=== PATIENT | male | born 1965 | race Caucasian/White ===

== ENCOUNTER → 2016-04-16 | Outpatient (CLI) | payer BC ==
--- NOTE | 2016-04-16 15:20 | CT ---
EXAMINATION TYPE: CT abdomen pelvis wo con DATE OF EXAM: 04/16/2016 3:09 PM COMPARISON: NONE HISTORY: Pt states of abdominal and pelvic pain with constipation. CT DLP: 1089 mGycm Automated exposure control for dose reduction was used. TECHNIQUE: Helical acquisition of images was performed from the lung bases through the pelvis. FINDINGS: LUNG BASES: No significant abnormality is appreciated. LIVER/GB: No significant abnormality is appreciated. PANCREAS: No significant abnormality is seen. SPLEEN: No significant abnormality is seen. ADRENALS: No significant abnormality is seen. KIDNEYS: Bilateral parapelvic renal cysts. No renal calcifications. RETROPERITONEAL ADENOPATHY: None visualized URINARY BLADDER: No significant abnormality is seen. PELVIC ADENOPATHY: None visualized. OSSEOUS STRUCTURES: Hypertrophic change of the spine noted.. BOWEL: There is marked wall thickening involving the sigmoid colon with pericolonic inflammatory latonya nge in diverticula. No free air. No abscess. OTHER: Aorta of normal caliber. Central disc protrusion L4-L5. IMPRESSION: ACUTE UNCOMPLICATED SIGMOID DIVERTICULITIS. FOLLOW TO RESOLUTION TO EXCLUDE MUCOSAL LESION.
== END | disposition home or self-care (01) ==
LOC: RADCTMAIN 10:37
PROVIDERS: ATTEND Family Medicine
DX: K57.32 Diverticulitis of large intestine without perforation or abscess without bleeding (principal)
CPT/HCPCS: 74176

== ENCOUNTER 2017-09-23 09:26 | Emergency (ER) | payer BC ==
[2017-09-23] MEDS ORDERED: SODIUM CHLORIDE 0.9% 1,000 ML IV STA (09:36)
--- NOTE | 2017-09-23 09:38 | ED ---
Abdominal Pain HPI - General Source: patient, RN notes reviewed Mode of arrival: ambulatory Limitations: no limitations <Fortunato Felton - Last Filed: 09/23/17 11:26> <Suhail Mo - Last Filed: 09/27/17 14:30> - General Chief Complaint: Abdominal Pain Stated Complaint: ABDOMINAL PAIN Time Seen by Provider: 09/23/17 09:33 - History of Present Illness Initial Comments: This a 52-year-old male presents emergency Department chief complaint of lower abdominal pain. Patient states pain started yesterday has progressed into today. Patient states he did have bowel movement yesterday states he feels he has to go but is having little output. He does admit to urinary frequency no dysuria no hematuria. Denies any flank pain or any back pain this time. Patient has a history of diverticulitis no abdominal surgeries. Patient was unable to see PCP today and came the emergency department. Patient states that he felt that he had a fever last night. (Fortunato Felton) - Related Data Home Medications Medication Instructions Recorded Confirmed Amoxicillin 1,000 mg PO ONCE 09/23/17 09/23/17 Aspirin EC [Ecotrin Low Dose] 81 mg PO HS 09/23/17 09/23/17 Naproxen Sodium [Aleve] 220 mg PO HS 09/23/17 09/23/17 Previous Rx's Medication Instructions Recorded Ciprofloxacin HCl [Cipro] 500 mg PO Q12HR #20 tablet 09/23/17 metroNIDAZOLE [Flagyl] 500 mg PO TID #30 tab 09/23/17 Allergies Allergy/AdvReac Type Severity Reaction Status Date / Time No Known Allergies Allergy Verified 09/23/17 09:50 Review of Systems ROS Other: All systems not noted in ROS Statement are negative. <Fortunato Felton - Last Filed: 09/23/17 11:26> ROS Other: All systems not noted in ROS Statement are negative. <Suhail Mo - Last Filed: 09/27/17 14:30> ROS Statement: Those systems with pertinent positive or pertinent negative responses have been documented in the HPI. Past Medical History Additional Past Medical History / Comment(s): diverticulitis History of Any Multi-Drug Resistant Organisms: None Reported Past Surgical History: No Surgical Hx Reported Past Psychological History: No Psychological Hx Reported Smoking Status: Never smoker Past Alcohol Use History: None Reported Past Drug Use History: None Reported <Fortunato Felton - Last Filed: 09/23/17 11:26> General Exam Limitations: no limitations General appearance: alert, in no apparent distress Head exam: Present: atraumatic, normocephalic, normal inspection Neck exam: Present: normal inspection. Absent: tenderness, meningismus, lymphadenopathy Respiratory exam: Present: normal lung sounds bilaterally. Absent: respiratory distress, wheezes, rales, rhonchi, stridor Cardiovascular Exam: Present: regular rate, normal rhythm, normal heart sounds. Absent: systolic murmur, diastolic murmur, rubs, gallop, clicks GI/Abdominal exam: Present: soft, tenderness (Mild lower), normal bowel sounds. Absent: distended, guarding, rebound, rigid Back exam: Absent: CVA tenderness (R), CVA tenderness (L) Skin exam: Present: warm, dry, intact, normal color. Absent: rash <Fortuntao Felton - Last Filed: 09/23/17 11:26> Vital Signs 09/23/17 09/23/17 09:29 11:34 Temperature 97.4 F L 97.8 F Pulse Rate 90 68 Respiratory 18 16 Rate Blood Pressure 139/96 138/70 O2 Sat by Pulse 96 98 Oximetry Medical Decision Making - Lab Data Result diagrams: 09/23/17 09:54 09/23/17 09:54 <Fortunato Felton - Last Filed: 09/23/17 11:26> - Lab Data Result diagrams: 09/23/17 09:54 09/23/17 09:54 <Suhail Mo - Last Filed: 09/27/17 14:30> - Medical Decision Making 52-year-old male present emergency department for left lower quadrant abdominal pain. Patient had laboratory, CT CT does show evidence of on computed diverticulitis there is no abscesses no perforation. Patient had no nausea or vomiting. Patient can tolerate by mouth intake at this time. Patient will be started on Cipro Flagyl with close follow-up and recommended colonoscopy after resolution of symptoms. (Fortunato Felton) Resident/PA attestation: I, Dr. Suhail Mo, personally saw and examined the patient. I have reviewed and agree with the resident/PA findings, including all diagnostic interpretations and treatment plans as written unless otherwise stated. I was present for the clemons portions of any procedures performed and inclusive time noted for any critical care statement. 52-year-old male presents with clinical presentation consistent with diverticulitis. He is well-appearing and showing no signs of intractable pain or intractable nausea and vomiting. CT imaging showed cocaine infection. Patient agreeable to discharge her with antibiotics. Advised follow-up with primary care physician discharge. (Suhail Mo) - Lab Data Lab Results 09/23/17 09/23/17 09/23/17 Range/Units 09:43 09:54 09:54 WBC 10.0 (3.8-10.6) k/uL RBC 5.81 (4.30-5.90) m/uL Hgb 16.9 (13.0-17.5) gm/dL Hct 51.5 (39.0-53.0) % MCV 88.7 (80.0-100.0) fL MCH 29.1 (25.0-35.0) pg MCHC 32.8 (31.0-37.0) g/dL RDW 12.5 (11.5-15.5) % Plt Count 261 (150-450) k/uL Neutrophils % 75 % Lymphocytes % 15 % Monocytes % 6 % Eosinophils % 2 % Basophils % 0 % Neutrophils # 7.5 (1.3-7.7) k/uL Lymphocytes # 1.5 (1.0-4.8) k/uL Monocytes # 0.6 (0-1.0) k/uL Eosinophils # 0.2 (0-0.7) k/uL Basophils # 0.0 (0-0.2) k/uL Sodium 139 (137-145) mmol/L Potassium 4.3 (3.5-5.1) mmol/L Chloride 103 (98-107) mmol/L Carbon Dioxide 24 (22-30) mmol/L Anion Gap 12 mmol/L BUN 14 (9-20) mg/dL Creatinine 1.00 (0.66-1.25) mg/dL Est GFR (CKD-EPI)AfAm >90 (>60 ml/min/1.73 sqM) Est GFR (CKD-EPI)NonAf 85 (>60 ml/min/1.73 sqM) Glucose 108 H (74-99) mg/dL Plasma Lactic Acid Bran (0.7-2.0) mmol/L Calcium 9.4 (8.4-10.2) mg/dL Total Bilirubin 0.8 (0.2-1.3) mg/dL AST 21 (17-59) U/L ALT 33 (21-72) U/L Alkaline Phosphatase 79 (38-126) U/L Total Protein 6.9 (6.3-8.2) g/dL Albumin 4.2 (3.5-5.0) g/dL Amylase 68 (30-110) U/L Lipase 112 (23-300) U/L Urine Color Yellow Urine Appearance Clear (Clear) Urine pH 6.0 (5.0-8.0) Ur Specific [place] 1.014 (1.001-1.035) Urine Protein Negative (Negative) Urine Glucose (UA) Negative (Negative) Urine Ketones Negative (Negative) Urine Blood Negative (Negative) Urine Nitrite Negative (Negative) Urine Bilirubin Negative (Negative) Urine Urobilinogen <2.0 (<2.0) mg/dL Ur Leukocyte Esterase Trace H (Negative) Urine WBC <1 (0-5) /hpf Ur Squamous Epith Cells <1 (0-4) /hpf Urine Mucus Rare H (None) /hpf 09/23/17 Range/Units 09:54 WBC (3.8-10.6) k/uL RBC (4.30-5.90) m/uL Hgb (13.0-17.5) gm/dL Hct (39.0-53.0) % MCV (80.0-100.0) fL MCH (25.0-35.0) pg MCHC (31.0-37.0) g/dL RDW (11.5-15.5) % Plt Count (150-450) k/uL Neutrophils % % Lymphocytes % % Monocytes % % Eosinophils % % Basophils % % Neutrophils # (1.3-7.7) k/uL Lymphocytes # (1.0-4.8) k/uL Monocytes # (0-1.0) k/uL Eosinophils # (0-0.7) k/uL Basophils # (0-0.2) k/uL Sodium (137-145) mmol/L Potassium (3.5-5.1) mmol/L Chloride (98-107) mmol/L Carbon Dioxide (22-30) mmol/L Anion Gap mmol/L BUN (9-20) mg/dL Creatinine (0.66-1.25) mg/dL Est GFR (CKD-EPI)AfAm (>60 ml/min/1.73 sqM) Est GFR (CKD-EPI)NonAf (>60 ml/min/1.73 sqM) Glucose (74-99) mg/dL Plasma Lactic Acid Bran 1.1 (0.7-2.0) mmol/L Calcium (8.4-10.2) mg/dL Total Bilirubin (0.2-1.3) mg/dL AST (17-59) U/L ALT (21-72) U/L Alkaline Phosphatase (38-126) U/L Total Protein (6.3-8.2) g/dL Albumin (3.5-5.0) g/dL Amylase (30-110) U/L Lipase (23-300) U/L Urine Color Urine Appearance (Clear) Urine pH (5.0-8.0) Ur Specific [place] (1.001-1.035) Urine Protein (Negative) Urine Glucose (UA) (Negative) Urine Ketones (Negative) Urine Blood (Negative) Urine Nitrite (Negative) Urine Bilirubin (Negative) Urine Urobilinogen (<2.0) mg/dL Ur Leukocyte Esterase (Negative) Urine WBC (0-5) /hpf Ur Squamous Epith Cells (0-4) /hpf Urine Mucus (None) /hpf Disposition Is patient prescribed a controlled substance at d/c from ED?: No Time of Disposition: 11:27 <Fortunato Felton - Last Filed: 09/23/17 11:26> <Suhail Mo - Last Filed: 09/27/17 14:30> Clinical Impression: Acute diverticulitis Disposition: HOME SELF-CARE Condition: Stable Instructions: Diverticulitis (ED), Diverticulitis Diet (ED) Additional Instructions: Please return to the Emergency Department if symptoms worsen or any other concerns. Prescriptions: Ciprofloxacin HCl [Cipro] 500 mg PO Q12HR #20 tablet metroNIDAZOLE [Flagyl] 500 mg PO TID #30 tab Referrals: Sanford Reyes DO [Primary Care Provider] - 1-2 days
[2017-09-23 10:13] LABS: Basophils % (A) 0 %; Eosinophils # (A) 0.2 k/uL (0-0.7); Eosinophils % (A) 2 %; HCT 51.5 % (39.0-53.0); HGB 16.9 gm/dL (13.0-17.5); Lymphocytes # (A) 1.5 k/uL (1.0-4.8); Lymphocytes % (A) 15 %; MCH 29.1 pg (25.0-35.0); MCHC 32.8 g/dL (31.0-37.0); MCV 88.7 fL (80.0-100.0); Mean Platelet Volume 6.9; Monocytes # (A) 0.6 k/uL (0-1.0); Monocytes % (A) 6 %; Neutrophils # (A) 7.5 k/uL (1.3-7.7); Neutrophils % (A) 75 %; Platelet Count 261 k/uL (150-450); RBC 5.81 m/uL (4.30-5.90); RDW 12.5 % (11.5-15.5)
[2017-09-23 10:13] LABS: Appearance,Urine Clear (Clear); Bilirubin,Urine Negative (Negative); Blood,Urine Negative (Negative); Color,Urine Yellow; Glucose,Urine (UA) Negative (Negative); Ketones,Urine Negative (Negative); Leukocyte Esterase,Urine Trace (Negative); Mucus,Urine Rare /hpf; Nitrite,Urine Negative (Negative); Protein,Urine Negative (Negative); Specific Gravity,Urine 1.014 (1.001-1.035); Squamous Epithelial Cell,Urine <1 /hpf (0-4); Urobilinogen,Urine <2.0 mg/dL (<2.0); WBC,Urine <1 /hpf (0-5)
[2017-09-23 10:22] LABS: ALT 33 U/L (21-72); AST 21 U/L (17-59); Albumin 4.2 g/dL (3.5-5.0); Alkaline Phosphatase 79 U/L (38-126); Amylase 68 U/L (30-110); Anion Gap 12 mmol/L; Blood Urea Nitrogen 14 mg/dL (9-20); Calcium 9.4 mg/dL (8.4-10.2); Carbon Dioxide 24 mmol/L (22-30); Chloride 103 mmol/L (98-107); Glucose 108 mg/dL (74-99); Lipase 112 U/L (23-300); Potassium 4.3 mmol/L (3.5-5.1); Sodium 139 mmol/L (137-145); Total Bilirubin 0.8 mg/dL (0.2-1.3); Total Protein 6.9 g/dL (6.3-8.2)
--- NOTE | 2017-09-23 11:16 | CT ---
EXAMINATION TYPE: CT abdomen pelvis w con DATE OF EXAM: 09/23/2017 COMPARISON: 04/16/2016 HISTORY: 52-year-old male with abdominal pain TECHNIQUE: Contiguous axial scanning of the abdomen and pelvis following administration of 100 ml Iso darryl 300 IV contrast. Delayed images through the kidneys and coronal/sagittal reconstructions perform ed. CT DLP: 1821 mGycm Automated exposure control for dose reduction was used. FINDINGS: Heart normal size without pericardial effusion. Lung bases clear without pleural effusion. Liver borderline enlarged measuring 17.7 cm. There is low attenuation suggesting fatty infiltration. No biliary ductal dilatation. Portal venous system is patent. Gallbladder, adrenal glands, spleen, and pancreas appear within normal limits. Stable small cortical cyst medial lower pole right kidney. Left greater than right parapelvic cysts o f the kidneys. No dilated small bowel, free fluid, or free air. No mesenteric or retroperitoneal lymphadenopathy. Ti ny fatty umbilical hernia. Normal appendix. Mild scattered stool with sigmoid diverticulosis. There is recurrent moderate short segment wall thickening with moderate surrounding inflammatory scruggs ge along the mid sigmoid colon at the site previously involved on 04/16/2016. Some stranding tracking edema is present without abnormal fluid collection in the pelvis. Left-sided pelvic phleboliths. No pelvic lymphadenopathy. Bladder partially distended. Bones: Mild degenerative changes at the hips. Degenerative disc disease L5-S1 and bulging disc at L4- L5. IMPRESSION: RECURRENT ACUTE, UNCOMPLICATED DIVERTICULITIS OF THE MID SIGMOID COLON. THERE IS MILD TO MODERATE CANELO ROUNDING INFLAMMATION. IF NOT PERFORMED PREVIOUSLY, FOLLOW-UP COLONOSCOPY AFTER SUCCESSFUL TREATMENT.
[2017-09-23 11:35] VITALS: BP 138/70; PULSE 68; RESP 16; TEMP 97.8
== END 2017-09-23 11:34 | disposition home or self-care (01) ==
LOC: EC 09:26
DX: K57.92 Diverticulitis of intestine, part unspecified, without perforation or abscess without bleeding (principal); Z79.1 Long term (current) use of non-steroidal anti-inflammatories (NSAID); Z79.82 Long term (current) use of aspirin
CPT/HCPCS: 36415; 80053; 82150; 83605; 83690; 85025; 81001; 87040; 74177; 99284; 96360; Q9967

== ENCOUNTER → 2018-12-22 | Outpatient (CLI) | payer BC ==
--- NOTE | 2018-12-22 11:15 | XR ---
EXAMINATION TYPE: XR cervical spine comp DATE OF EXAM: 12/22/2018 COMPARISON: NONE HISTORY: Vertigo TECHNIQUE: Four views are submitted. FINDINGS: The odontoid is intact. There are no compression deformities. The prevertebral soft tissue structur es are within normal limits. Hypertrophic changes of the vertebral column are noted. Mild multilevel degenerative disc disease. Foraminal encroachment C3-C4 bilaterally. IMPRESSION: 1. Multilevel degenerative disc disease with bilateral foraminal encroachment C3-C4.
== END | disposition home or self-care (01) ==
LOC: RADXRMAIN 10:16
PROVIDERS: ATTEND Family Medicine
DX: M50.31 Other cervical disc degeneration, high cervical region (principal); H81.4 Vertigo of central origin
CPT/HCPCS: 72050

== ENCOUNTER → 2019-01-16 | Outpatient (CLI) | payer BC ==
--- NOTE | 2019-01-16 09:11 | CT ---
EXAMINATION TYPE: CT brain wo/w con DATE OF EXAM: 01/16/2019 COMPARISON: None HISTORY: 53-year-old male with Vertigo TECHNIQUE: Examination was done in axial plane before and after intravenous contrast. 100 mL Isovue- 300 was administered. Coronal and sagittal reconstructions performed. CT DLP: 2216.8 mGycm Automated exposure control for dose reduction was used. FINDINGS: There is no evidence of acute intracranial hemorrhage, acute ischemic changes, mass, mass-effect, or extra-axial fluid collection. There is no effacement of cerebral sulci or basal subarachnoid cister ns. There is no hydrocephalus. There is no midline shift. Conte-white matter distinction is preserv ed. Old lacunar infarct or prominent perivascular space left basal ganglia. Following contrast administration, no abnormal intracranial enhancing lesions are seen. Dural venous sinuses are patent. Paranasal sinuses and mastoid air cells well pneumatized. Orbits and globes are intact. IMPRESSION: 1. No acute intracranial abnormality seen. 2. Old lacunar infarct versus prominent perivascular space in the left basal ganglia. 3. No enhancing intracranial lesions.
--- NOTE | 2019-01-16 09:26 | US ---
EXAMINATION TYPE: US carotid duplex BILAT DATE OF EXAM: 01/16/2019 COMPARISON: NONE CLINICAL HISTORY: R42 vertigo. Dizziness. No HTN. No hx TIA or stroke EXAM MEASUREMENTS: RIGHT: Peak Systolic Velocity (PSV) cm/sec ----- Right CCA: 98.7 ----- Right ICA: 94.6 ----- Right ECA: 108.2 ICA/CCA ratio: 1.0 RIGHT: End Diastole cm/sec ----- Right CCA: 26.0 ----- Right ICA: 23.0 ----- Right ECA: 19.2 LEFT: Peak Systolic Velocity (PSV) cm/sec ----- Left CCA: 92.1 ----- Left ICA: 85.5 ----- Left ECA: 100.5 ICA/CCA ratio: 0.9 LEFT: End Diastole cm/sec ----- Left CCA: 29.3 ----- Left ICA: 39.2 ----- Left ECA: 17.6 VERTEBRALS (direction of flow): Right Vertebral: Antegrade Left Vertebral: Antegrade Rhythm: Normal Bilateral wall thickening. No elevated velocities, significant stenosis or plaque visualized. IMPRESSION: Mild degree of grayscale atheromatous plaquing with no sonographically evident hemodynam ically significant stenosis within either visualized carotid arterial system. Criteria for Assigning % of Stenosis / Diameter reduction (Estimation based on the indirect measurements of the internal carotid artery velocities (ICA PSV). 1. Normal (no stenosis)=ICA PSV < 125 cm/s: ratio < 2.0: ICA EDV<40 cm/s. 2. Less than 50% stenosis=ICA PSV < 125 cm/s: ratio < 2.0: ICA EDV<40 cm/s. 3. 50 to 69% stenosis=ICA PSV of 125 to 230 cm/s: ration 2.0 ? 4.0: ICA EDV 40-100 cm/s. 4. Greater than 70% stenosis to near occlusion= ICA PSV > 230 cm/s: ratio > 4.0: ICA EDV > 100 cm/s. 5. Near occlusion= ICA PSV velocities may be low or undetectable: variable ratio and ICA EDV. 6. Total occlusion=unable to detect flow.
--- NOTE | 2019-01-16 13:58 | EST ---
EXERCISE STRESS AGE: 53 SEX: M HT: 69" WT: 225 PROTOCOL: Chandler Stress Test STAGE: 3 DURATION OF EXERCISE: 8:00 HEART RATE REST: 66 BLOOD PRESSURE REST: 132/94 MAXIMUM HEART RATE ACHIEVED: 142 MAXIMUM BLOOD PRESSURE: 182/76 85% MPHR: 140 100% MPHR: 165 METS: 9.7 INDICATIONS: Vertigo/chest pain. CLINICAL INFORMATION: Baseline EKG revealed normal sinus rhythm without significant ST changes. Patient walked for 8 minutes, achieved a maximal heart rate of 142 beats per minute, developed fatigue and shortness of breath. There was a lot of baseline artifact. No clear-cut ST-segment changes were noted to indicate ischemia. Patient achieved 85% of predicted maximal heart rate. By EKG criteria, this is a negative stress test with fair exercise capacity. There was no angina or arrhythmia. MMODL / IJN: [id number] /
== END | disposition home or self-care (01) ==
LOC: RADCTMAIN 06:43
PROVIDERS: ATTEND Family Medicine
DX: R42 Dizziness and giddiness (principal); I77.89 Other specified disorders of arteries and arterioles; R53.83 Other fatigue
CPT/HCPCS: 93017; 93880; 70470; Q9967

== ENCOUNTER → 2019-01-24 | Outpatient (CLI) | payer BC ==
--- NOTE | 2019-01-24 13:19 | ECHOF ---
Referral Reason:R53.83 fatigue MEASUREMENTS -------- HEIGHT: 175.3 cm WEIGHT: 102.1 kg BP: 129/78 RVIDd: 3.5 cm (< 3.3) IVSd: 1.2 cm (0.6 - 1.1) LVIDd: 4.4 cm (3.9 - 5.3) LVPWd: 1.2 cm (0.6 - 1.1) IVSs: 1.8 cm LVIDs: 2.8 cm LVPWs: 1.7 cm LA Diam: 3.4 cm (2.7 - 3.8) LAESV Index (A-L): 21.56 ml/m Ao Diam: 3.1 cm (2.0 - 3.7) AV Cusp: 2.3 cm (1.5 - 2.6) MV EXCURSION: 13.341 mm (> 18.000) MV EF SLOPE: 68 mm/s (70 - 150) EPSS: 0.5 cm MV E Daniel: 0.70 m/s MV DecT: 236 ms MV A Daniel: 0.69 m/s MV E/A Ratio: 1.01 RAP: 5.00 mmHg RVSP: 27.49 mmHg TAPSE: 12.54 mm FINDINGS -------- Sinus rhythm. This was a technically adequate study. The left ventricular size is normal. There is borderline concentric left ventricular hypertrophy. Overall left ventricular systolic function is normal with, an EF between 60 - 65 %. The diastolic filling pattern is normal for the age of the patient 11.41. The right ventricle is mildly enlarged. The right ventricular systolic function is mildly impaired. Normal LA size by volume 22+/-6 ml/m2. The right atrium is normal in size. Interatrial and interventricular septum intact. The aortic valve is trileaflet and appears structurally normal. There is trace mitral regurgitation. Mild tricuspid regurgitation present. Right ventricular systolic pressure is normal at < 35 mmHg. The aortic root size is normal. IVC Not well visulized. There is no pericardial effusion. CONCLUSIONS -------- 1. Sinus rhythm. 2. This was a technically adequate study. 3. The left ventricular size is normal. 4. There is borderline concentric left ventricular hypertrophy. 5. Overall left ventricular systolic function is normal with, an EF between 60 - 65 %. 6. The diastolic filling pattern is normal for the age of the patient 11.41 7. The right ventricle is mildly enlarged. 8. The right ventricular systolic function is mildly impaired. 9. Normal LA size by volume 22+/-6 ml/m2. 10. The right atrium is normal in size. 11. Interatrial and interventricular septum intact. 12. The aortic valve is trileaflet and appears structurally normal. 13. There is trace mitral regurgitation. 14. Mild tricuspid regurgitation present. 15. Right ventricular systolic pressure is normal at < 35 mmHg. 16. The aortic root size is normal. 17. IVC Not well visulized. 18. There is no pericardial effusion. HANDS HANGER: Lana Neville RDCS
== END | disposition home or self-care (01) ==
LOC: RADECHMAIN 08:18
PROVIDERS: ATTEND Family Medicine
DX: I07.1 Rheumatic tricuspid insufficiency (principal); Z91.048 Other nonmedicinal substance allergy status
CPT/HCPCS: 93306

== ENCOUNTER 2021-08-18 18:30 | Emergency (ER) | payer BC ==
[2021-08-18 19:03] VITALS: BP 131/92; PULSE 91; RESP 20; TEMP 98.2
--- NOTE | 2021-08-18 19:40 | XR ---
EXAMINATION TYPE: XR wrist complete RT DATE OF EXAM: 08/18/2021 7:27 PM INDICATION: Patient age:Male; 55 years old; Reason for study: Injury; COMPARISON: None TECHNIQUE: 3 views of the right wrist. FINDINGS: Osseous fragment seen on lateral view. No additional fractures. There is soft tissue swelli ng. No radiopaque foreign bodies. IMPRESSION: Findings suspicious for posterior triquetrum avulsion fracture. Correlate with point tenderness.
--- NOTE | 2021-08-18 19:50 | ED ---
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 Patient stepped into a hole and twisting his head. Patient unsure of the mechanism but has pain to the dorsum of the hand near the wrist. Denies any distal paresthesias. Denies any finger injuries. No distal or proximal injuries. Injury occurred just prior to arrival. No headache, no fever or chills, no changes in vision or hearing, no sore throat or difficulty with speech, no neck pain, no chest pain or shortness of breath, no abdominal pain, no nausea or vomiting, no changes in urination or bowel movements, no numbness or tingling, no skin rashes or lesions. MD Complaint: Injury to:: right - Related Data Home Medications Medication Instructions Recorded Confirmed Amoxicillin 1,000 mg PO ONCE 09/23/17 09/23/17 Aspirin EC [Ecotrin Low Dose] 81 mg PO HS 09/23/17 09/23/17 Naproxen Sodium [Aleve] 220 mg PO HS 09/23/17 09/23/17 Previous Rx's Medication Instructions Recorded Ciprofloxacin HCl [Cipro] 500 mg PO Q12HR #20 tablet 09/23/17 metroNIDAZOLE [Flagyl] 500 mg PO TID #30 tab 09/23/17 Allergies Allergy/AdvReac Type Severity Reaction Status Date / Time No Known Allergies Allergy Verified 08/18/21 19:03 Review of Systems ROS Statement: Those systems with pertinent positive or pertinent negative responses have been documented in the HPI. ROS Other: All systems not noted in ROS Statement are negative. Past Medical History Additional Past Medical History / Comment(s): diverticulitis History of Any Multi-Drug Resistant Organisms: None Reported Past Surgical History: No Surgical Hx Reported Past Psychological History: No Psychological Hx Reported Smoking Status: Never smoker Past Alcohol Use History: None Reported Past Drug Use History: None Reported General Exam Limitations: no limitations General appearance: alert, in no apparent distress Head exam: Present: atraumatic, normocephalic, normal inspection Eye exam: Present: normal appearance, EOMI Neck exam: Present: normal inspection, full ROM. Absent: tenderness, meningismus, lymphadenopathy Respiratory exam: Absent: respiratory distress Cardiovascular Exam: Present: regular rate, normal rhythm, normal heart sounds. Absent: systolic murmur, diastolic murmur, rubs, gallop, clicks GI/Abdominal exam: Absent: distended Right Elbow exam: Present: normal inspection, full ROM. Absent: tenderness, swelling, abrasion Forearm Wrist exam: Present: normal inspection. Absent: full ROM, swelling, abrasion Hand Wrist exam: Present: normal inspection, tenderness (Patient has tenderness in the dorsum of the right hand near the triquetral bone. No break in skin integrity. Pulses are intact. Cap refill is normal. Distal sensation intact.), swelling. Absent: laceration, ecchymosis, crepitus, dislocation, erythema, amputation, nail avulsion, subungual hematoma Neuro motor exam: Present: thumb opposition intact, thumb IP flexion intact, thumb adduction intact, fingers 2-5 abduction intact Vascular: Present: normal capillary refill. Absent: vascular compromise, Pallo, pulse deficit radial art, pulse deficit ulnar art Back exam: Present: normal inspection, full ROM Neurological exam: Present: alert, oriented X3, CN II-XII intact (Grossly). Absent: motor sensory deficit Psychiatric exam: Present: normal affect, normal mood Skin exam: Present: warm, dry, intact, normal color. Absent: rash Course Vital Signs 08/18/21 19:01 Temperature 98.2 F Pulse Rate 91 Respiratory 20 Rate Blood Pressure 131/92 O2 Sat by Pulse 99 Oximetry Procedures - Orthopedic Splinting/Casting Injury #1 Side: right Upper Extremity Injury Location: short arm Upper Extremity Immobilizer: volar splint (right hand and wrist), Vinayak wrap, fiberglass cast Additional Comments: Distal neurovascular status intact pre-and post-application. Sling provided. Medical Decision Making - Medical Decision Making Patient presents with isolated injury to the right hand. X-rays positive for an avulsion fracture off the triquetrum which was confirmed by radiology. I did place the patient in a short arm volar splint. Sling applied. Patient tolerated well. Neurovascular status was intact. Discussed signs and symptoms of compartment syndrome. Discussed return follow-up parameters. Patient to call in the morning for follow-up. Patient was told to return to the ER for any signs or symptoms worsen. Told to return immediately if any other problems arise. All questions answered. Treatment plan discussed. Patient in agreement Every effort has been made to ensure accuracy of this dictation. However, due to the limitations of electronic medical records and dictation devices, errors in charting still occur. Account Resolution Analyst Dr. Christina - Radiology Data Radiology results: report reviewed, image reviewed Disposition Clinical Impression: Displaced fracture of triquetrum [cuneiform] bone, right wrist, initial encounter for closed fracture Disposition: HOME SELF-CARE Condition: Good Instructions (If sedation given, give patient instructions): Hand Fracture (ED), Splint Care (ED) Additional Instructions: Keep the splint on until follow-up with orthopedics. Use the sling as directed. [id number] Tylenol as needed for pain control. He can apply ice 20 minutes on and off through the splinting material. Did not get the material wet. Call tomorrow morning to set up appointment with the orthopedic physician. Return to the ER immediately if any symptoms worsen, new symptoms arise, or any other problems develop. Is patient prescribed a controlled substance at d/c from ED?: No Referrals: Fortunato Reaves DO [Doctor of Osteopathic Medicine] - 1-2 days Princess Whitaker DO [Doctor of Osteopathic Medicine] - 1-2 days Time of Disposition: 19:49
== END 2021-08-18 19:47 | disposition home or self-care (01) ==
LOC: EC 18:30
DX: S62.111A Displaced fracture of triquetrum [cuneiform] bone, right wrist, initial encounter for closed fracture (principal); Z79.82 Long term (current) use of aspirin; X50.1XXA Overexertion from prolonged static or awkward postures, initial encounter
CPT/HCPCS: 29125; 99283

== ENCOUNTER → 2022-04-01 | Outpatient (CLI) | payer BC ==
--- NOTE | 2022-04-01 15:20 | XR ---
EXAMINATION TYPE: XR ankle complete LT DATE OF EXAM: 04/01/2022 COMPARISON: NONE HISTORY: Swelling FINDINGS: Three views of the ankle demonstrate the ankle mortise to be intact and symmetric. The joint spaces are preserved. The osseous structures are intact. IMPRESSION: 1. No definite acute fracture or dislocation, if symptoms persist follow-up study in 7 to 10 days wou ld be suggested.
== END | disposition home or self-care (01) ==
LOC: RADXRMAIN 14:24
PROVIDERS: ATTEND Family Medicine
DX: M25.572 Pain in left ankle and joints of left foot (principal); R22.42 Localized swelling, mass and lump, left lower limb
CPT/HCPCS: 85379

== ENCOUNTER → 2022-04-05 | Outpatient (CLI) | payer BC ==
--- NOTE | 2022-04-05 15:08 | US ---
EXAMINATION TYPE: US venous doppler duplex LE RT DATE OF EXAM: 04/05/2022 2:59 PM COMPARISON: NONE CLINICAL HISTORY: R22.42 SWELLING LT LOWER LIMB,M25.572 L ANKLE PAIN. left ankle pain and 2 palpable areas SIDE PERFORMED: Left TECHNIQUE: The lower extremity deep venous system is examined utilizing real time linear array sonog marie with graded compression, doppler sonography and color-flow sonography. VESSELS IMAGED: Common Femoral Vein Deep Femoral Vein Greater Saphenous Vein * Femoral Vein Popliteal Vein Small Saphenous Vein * Proximal Calf Veins (* superficial vessels) Left Leg: Negative for DVT 2 palpable areas, near left lateral ankle and left calf = no obvious ab normality seen IMPRESSION: Grayscale, color doppler, spectral doppler imaging performed of the deep veins of the lo wer extremities. There is normal flow, compressibility, vascular waveforms.
== END | disposition home or self-care (01) ==
LOC: RADUSWWP 14:35
PROVIDERS: ATTEND Family Medicine
DX: M25.572 Pain in left ankle and joints of left foot (principal); R22.42 Localized swelling, mass and lump, left lower limb